=== PATIENT | female | born 1955 | race Caucasian/White ===

== ENCOUNTER → 2020-02-11 10:57 | Outpatient (BNVA) | payer OTHER, SELFPAY | PROVIDERS: PCP Internal Medicine; Visit Provider Surgery | DX: Z76.89 Persons encountering health services in other specified circumstances (principal) ==

== ENCOUNTER 2020-02-17 12:37 | Outpatient (REF) | payer OTHER, SELFPAY ==
[2020-02-17 12:40] VITALS: BP 145/54; PULSE 72; RESP 16; TEMP 36.4; O2SAT 98
[2020-02-17 12:44] VITALS: BMI 45.8
[2020-02-17 13:42] VITALS: BP 150/55; PULSE 67; RESP 16; O2SAT 98
--- NOTE | 2020-02-17 14:01 | W.PM.OPN ---
Operative Note Operative Note Narrative: Preoperative diagnosis: Fibroma right groin Postoperative diagnosis: Same Procedure: Excision of fibroma right groin Anesthesia: Local 1% lidocaine with epinephrine 2 cc Specimen: Mass of right groin Estimated blood loss: 2 cc Immediate complications: None Indications this is a 64-year-old female who recently noticed a mass in her right inferior groin area. She has pulling and discomfort associated with it. There is a risk for avulsion and infarction. Excision is indicated. Procedure in detail with her in the prone position, the area of the soft tissue mass and surrounding skin prepped with Betadine solution and were draped sterilely. Skin and subcutaneous tissues were infiltrated with local anesthetic at the base of the mass. An elliptical incision was then made in the skin surrounding the base of the mass and was carried into the subcutaneous tissues. The mass was excised at that level. There was no significant bleeding. The incision was closed with 4 interrupted sutures of 5 0 fast-absorbing plain. A dry sterile dressing was applied. She tolerated the procedure well. She will keep the area dry and covered for 24 hours, will use acetaminophen as needed for pain, and will be seen in the office in about 1-2 weeks for wound check.
== END 2020-02-17 12:38 | disposition home or self-care (01) ==
LOC: HO.MS 12:37
PROVIDERS: Visit Provider Surgery
DX: D23.5 Other benign neoplasm of skin of trunk (principal)
CPT/HCPCS: 11406; 88305

== ENCOUNTER → 2020-02-25 13:30 | Outpatient (BNVA) | payer OTHER, SELFPAY | PROVIDERS: Visit Provider Surgery | DX: Z76.89 Persons encountering health services in other specified circumstances (principal) ==